=== PATIENT | female | born 1980 | race Two or more races ===

== ENCOUNTER 2018-05-08 18:53 | Emergency (ER) | payer SELFPAY ==
[~2018-05-08] VITALS: Ht 154.9 cm; Wt 60.6 kg
[~2018-05-08 18:53] MED LIST: CETI10TA19 PO; DESO15CR9 TOP
[2018-05-08 18:57] VITALS: BP 134/92; PULSE 117; RESP 20; Ht 154.9 cm; Wt 60.6 kg
== END 2018-05-09 02:33 | disposition left against medical advice (07) ==
LOC: E/R 18:53
DX: Z53.21 Procedure and treatment not carried out due to patient leaving prior to being seen by health care provider (principal)

== ENCOUNTER 2019-01-14 11:35 | Day surgery (SDC) | payer OTHER ==
[~2019-01-14] VITALS: Ht 154.9 cm; Wt 64.1 kg
[2019-01-14] VITALS (10 sets, daily range): BP systolic 116–128; BP diastolic 70–83; PULSE 64–75; RESP 15–19; Ht 154.9 cm; Wt 64.1 kg
[2019-01-14] MEDS ORDERED: IOHEXOL 300MG/ML 30 ML BTL ONE (13:27)
[2019-01-14] MEDS ORDERED: INDOMETHACIN 50 MG SUPP PR ONE (13:30)
[2019-01-14] MEDS ORDERED: ROCURONIUM 50 MG INJ ONE (13:37)
[2019-01-14] MEDS ORDERED: PROPOFOL 20 ML ONE (13:37)
[2019-01-14] MEDS ORDERED: CEFAZOLIN 1 GM INJ ONE (13:37)
[2019-01-14] MEDS ORDERED: GLYCOPYRROLATE 0.4 MG INJ ONE (13:37)
[2019-01-14] MEDS ORDERED: NEOSTIGMINE 3 MG/3 ML SYRINGE ONE (13:37)
[2019-01-14] MEDS ORDERED: FENTAnyl 50 MCG/ML VIAL ONE (13:39)
[2019-01-14] MEDS ORDERED: MIDAZOLAM 1 MG/ML 2 ML INJ ONE (13:39)
[2019-01-14] MEDS ORDERED: DEXAMETHASONE 4 MG/ML 5 ML INJ ONE (13:40)
[2019-01-14] MEDS ORDERED: ONDANSETRON 4 MG INJ ONE (13:40)
[2019-01-14] MEDS ORDERED: ONDANSETRON 4 MG INJ IV PRN ×2 (14:30→15:00)
[2019-01-14] MEDS ORDERED: OXYCODONE/ACETAMINOPHEN (5/325) TAB PO PRN ×4 (14:30→15:00)
[2019-01-14] MEDS ORDERED: DIPHENHYDRAMINE 50 MG INJ IV PRN ×2 (14:30→15:00)
[2019-01-14] MEDS ORDERED: HYDROmorphONE 1 MG/5 ML IV SYRINGE IV PRN ×6 (14:30→15:00)
[2019-01-14] MEDS ORDERED: LABETALOL HCL 20MG INJ IV PRN ×2 (14:30→15:00)
[2019-01-14] MEDS ORDERED: IPRATROPIUM (NEB) 0.5 MG/2.5 ML AMP HHN PRN ×2 (14:30→15:00)
[2019-01-14] MEDS ORDERED: hydrALAzine 20 MG INJ IV PRN ×2 (14:30→15:00)
[2019-01-14] MEDS ORDERED: TRIMETHOBENZAMIDE 100 MG/ML VIAL IM PRN ×2 (14:30→15:00)
[2019-01-14] MEDS ORDERED: EPHEDrine 25 MG/5 ML SYG IV PRN ×2 (14:30→15:00)
[2019-01-14] MEDS ORDERED: MIDAZOLAM 1 MG/ML 2 ML INJ IV PRN ×2 (14:30→15:00)
[2019-01-14] MEDS ORDERED: FENTAnyl 50 MCG/ML VIAL IV PRN ×6 (14:30→15:00)
[2019-01-14] MEDS ORDERED: MEPERIDINE 25 MG INJ IV PRN ×2 (14:30→15:00)
[2019-01-14] MEDS ORDERED: ALBUTEROL 0.083% (NEB) 2.5 MG/3 ML AMP HHN PRN ×2 (14:30→15:00)
== END 2019-01-14 16:29 | disposition home or self-care (01) ==
LOC: GIL 11:35 → SDS 11:35 → GIL 16:29
PROVIDERS: ATTEND Internal Medicine Gastroenterology
DX: K83.9 Disease of biliary tract, unspecified (principal); R10.11 Right upper quadrant pain
CPT/HCPCS: 43274; 74330; 80053; 84703; 85025; 85610; 85730; 93005; J0690; J1100; J2250; J2405; J2710; J3010; Q9967; Z7512; Z7610